=== PATIENT | male | born 1985 | race Caucasian/White ===

== ENCOUNTER 2024-07-01 12:31 | Emergency (ER) | payer MEDICAID ==
[~2024-07-01] VITALS: Ht 172.7 cm; Wt 90.0 kg
[2024-07-01 12:35] VITALS: O2SAT 99
[2024-07-01] MEDS: IBUPROFEN 600MG TABLET PO ONE (14:41)
[2024-07-01] MEDS: TETANUS, DIPHTHERIA, PERTUSSIS VAC/PF 0.5ML (>10YR OLD) IM ONE (14:41)
[2024-07-01] MEDS: CEPHALEXIN 250MG CAPSULE PO ONE (14:41)
[2024-07-01] MEDS: LIDOCAINE HCL/PF 1% 10 MG/ML 5ML VIAL INFIL ONE (14:41)
[2024-07-01] MEDS: BACITRACIN ZINC OINT UDPKT TOP ONE (14:41)
[2024-07-01] MEDS: HYDROCODONE/ACETAMINOPHEN 5/325MG TABLET PO ONE (15:50)
[2024-07-01] MEDS ORDERED: IBUP-2030 MT (16:08)
[2024-07-01] MEDS ORDERED: CEPH500T MT (16:10)
[2024-07-01] MEDS ORDERED: BO1 TP (16:10)
[2024-07-01 16:41] VITALS: BP 133/78; PULSE 78; RESP 18; TEMP 36.66960; O2SAT 99
== END 2024-07-01 16:42 | disposition home or self-care (01) ==
LOC: ER 12:44
DX: S61.012A Laceration without foreign body of left thumb without damage to nail, initial encounter (principal); S61.211A Laceration without foreign body of left index finger without damage to nail, initial encounter; X58.XXXA Exposure to other specified factors, initial encounter; Y93.89 Activity, other specified; Y92.89 Other specified places as the place of occurrence of the external cause; Y99.8 Other external cause status
CPT/HCPCS: 73130; 90715; 12001; 99284; J3490; Z7610 ×2

== ENCOUNTER 2024-07-03 10:39 | Emergency (ER) | payer MEDICAID ==
[~2024-07-03] VITALS: Ht 175.3 cm; Wt 105.0 kg
[~2024-07-03 10:39] MED LIST: BO1 TP; CEPH500T MT; IBUP-2030 MT
[2024-07-03 10:42] VITALS: O2SAT 99
[2024-07-03 10:46] VITALS: BP 146/93; PULSE 89; RESP 18; TEMP 98.1; O2SAT 97
== END 2024-07-03 12:09 | disposition home or self-care (01) ==
LOC: ER 10:39
DX: S61.215D Laceration without foreign body of left ring finger without damage to nail, subsequent encounter (principal); Z48.00 Encounter for change or removal of nonsurgical wound dressing; X58.XXXD Exposure to other specified factors, subsequent encounter
CPT/HCPCS: 99281